=== PATIENT | female | born 1995 | race Caucasian/White ===

== ENCOUNTER 2017-03-09 18:47 | Emergency (ER) | payer OTHER ==
[~2017-03-09] VITALS: Ht 175.3 cm; Wt 74.8 kg
[~2017-03-09 18:47] MED LIST: BCPILLS PO
[2017-03-09 18:57] VITALS: TEMP 36.7; Ht 175.3 cm; Wt 74.8 kg
[2017-03-09 19:51] VITALS: BP 110/89; PULSE 70; O2SAT 97
--- NOTE | 2017-03-09 21:42 | EMERGENCY ROOM VISIT NOTE ---
ED Visit Note First contact with patient: 18:59 Chief Complaint: I cut my left index finger. History of Present Illness: Ms. Fisher is a 21-year-old white female who ambulates into the ED complaining of a left index finger laceration. Patient reports less than 30 minutes ago she was attempting to remove a pit out of an avocado and accidentally cut her left index finger. She did control bleeding prior to arrival at the hospital but did not clean her wound. Associated with her she reports a stinging sensation in the left index finger. She rates her discomfort 4/10. Her pain is nonradiating. Her pain worsens with palpation. She has not identified any alleviating factors related to the pain. She has not taken medications for pain prior to arrival at the hospital. Associated with her pain she reports a numbness sensation to the distal aspect of the finger. Review of Systems: As noted above in history of present illness. Past Medical History: Status post wisdom teeth extraction and colonoscopy. Current Medications: Patient denies. Allergies to Medications: Lactose intolerance. Social History: Patient is University student; she feels safe in her home environment; she admits to tobacco and alcohol use. Tetanus Immunization Status: Patient reports up-to-date as of 2013. Physical Examination: Vital Signs: Date Time Temp Pulse Resp B/P (MAP) Pulse Ox O2 Delivery O2 Flow Rate FiO2 03/09/17 19:51 70 16 110/89 97 03/09/17 18:57 36.7 82 16 127/90 95 Room Air GENERAL: 21-year-old female in mild distress due to pain, nontoxic-appearing, afebrile and hemodynamically stable. NEUROLOGICAL: Awake, alert and oriented to person, place and time. Answering questions appropriately and following commands. SKIN: Warm, dry and pink. Left Index Finger: Over the lateral aspect of the second MCP joint patient has a subcentimeter superficial laceration with minimal bleeding. LEFT INDEX FINGER: Soft tissue injury as noted above. No gross bony deformities. Full range of motion and muscle strength in flexion and extension of the MCP, PIP and DIP joint. Throughout the finger the skin was warm and pink and capillary refill is brisk. Patient was able to distinguish light sensations through all dermatomes of the finger. ED Course: Patient is assessed as noted above. Wound Repair: Complexity: Basic Verbal consent was obtained after the risks and benefits were explained. The skin was prepped with betadine and a sterile field set. The wound was explored for foreign bodies and none found. Copious irrigation was performed using sterile saline. With direct pressure the bleeding subsided. Debridement was not performed. The wound edges were approximated using 3 Steri-Strips Hemostasis and excellent approximation was achieved. Sterile dressing and a finger splint was applied applied. No complications and the patient tolerated the procedure well. Patient was educated about tonight's findings and instructed on his treatment plan; he verbalizes understanding and agreement with this plan. Clinical Impression: Laceration of the index finger. Disposition: Patient discharged home in stable condition; prior to departure he was reassessed and subjectively reported she was pain-free. Plan: Comfort measures, wound care and signs of infection were discussed with the patient. Patient was encouraged to follow-up with [facility] or return to the ED for signs of infection or any new/concerning symptoms.
== END 2017-03-09 19:52 | disposition home or self-care (01) ==
LOC: C.EDB 18:48 → C.EDD 19:52
DX: S61.211A Laceration without foreign body of left index finger without damage to nail, initial encounter (principal); W45.8XXA Other foreign body or object entering through skin, initial encounter; F17.200 Nicotine dependence, unspecified, uncomplicated; Z91.011 Allergy to milk products